=== PATIENT | female | born 1995 | race Caucasian/White ===

== ENCOUNTER 2017-11-30 15:13 | Emergency (ER) | payer OTHER, BC ==
[2017-11-30] MEDS ORDERED: DIPHTH/TETANUS/ACEL. PERTUSSIS IM ONE (15:20)
[2017-11-30] MEDS ORDERED: NORG1TAB98 PO (15:21)
[2017-11-30] MEDS ORDERED: IOPAMIDOL 76% 75 ML INFUS BTL 75 ML ONE (15:33)
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
[2017-11-30 16:07] LABS: PLATELET COUNT, AUTOMATED 289 K/uL (150-450)
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
[2017-11-30] MEDS ORDERED: KETOROLAC 15 MG/ML VIAL IVP ONE (16:20)
[2017-11-30 17:00] VITALS: BP 120/86
[2017-11-30] MEDS ORDERED: HYDR-4309 PO (17:21)
[2017-11-30] MEDS ORDERED: METH-543 PO (17:21)
== END 2017-11-30 17:34 | disposition home or self-care (01) ==
LOC: ER 15:21
DX: S61.214A Laceration without foreign body of right ring finger without damage to nail, initial encounter (principal); S61.212A Laceration without foreign body of right middle finger without damage to nail, initial encounter; S30.0XXA Contusion of lower back and pelvis, initial encounter; S90.32XA Contusion of left foot, initial encounter; S40.812A Abrasion of left upper arm, initial encounter; V48.0XXA Car driver injured in noncollision transport accident in nontraffic accident, initial encounter
CPT/HCPCS: 12001; 36415; 70450; 71260; 72125; 74177; 80320; 83605; 83690; 84703; 85025; 85610; 85730; 90471; 90715; 96374; 99285; J1885; Q9967; 82040; 82247; 82310; 82374; 82435; 82565; 82947; 84075; 84132; 84155; 84295; 84450; 84460; 84520

== ENCOUNTER → 2017-11-30 | Outpatient (CLI) | payer OTHER, BC ==
[~2017-11-30] MED LIST: HYDR-4309 PO; METH-543 PO; NORG1TAB98 PO
== END ==
LOC: AMB 14:33
PROVIDERS: ATTEND Nurse Practitioner
DX: M25.512 Pain in left shoulder (principal); M25.551 Pain in right hip; V49.40XA Driver injured in collision with unspecified motor vehicles in traffic accident, initial encounter; Y92.413 State road as the place of occurrence of the external cause
CPT/HCPCS: A0425; A0427